=== PATIENT | male | born 1980 | race Caucasian/White ===

== ENCOUNTER 2018-03-27 06:05 | Emergency (ER) | payer SELFPAY ==
--- NOTE | 2018-03-27 06:26 | Emergency Department Record ---
History of Present Illness - General Chief complaint: Cold Stated complaint: COUGH/SORE THROAT Time Seen by Provider: 03/27/18 06:18 Source: Patient Mode of Arrival: Ambulatory Limitations: No limitations - History of Present Illness Initial comments: 37 yo male presents to ED for evaluation of intermittent sore throat symptoms x 1 month. Patient denies fevers, chills, or productive cough symptoms. Patient does report nasal congestion symptoms. Patient also denies health problems at his baseline, denies taking anything for his health problems. MD complaint: Sore throat Onset/Timin -: Month(s) Location: Throat Severity scale (1-10): 5 Quality: Sharp, Other Consistency: Constant Improves with: Cold therapy Worsens with: Other Associated Symptoms: Cough, Pain with swallowing, Sore throat - Related Data Previous Rx's Medication Instructions Recorded Benzonatate [Tessalon] 2 cap PO Q8H PRN #20 cap 03/27/18 Allergies Allergy/AdvReac Type Severity Reaction Status Date / Time tramadol Allergy PT UNSURE Verified 03/27/18 06:12 OF REACTION Travel Screening - Travel/Exposure Within Last 30 Days Have you traveled within the last 30 days?: Yes Location Detail:: front end loader driver - Travel/Exposure Within Last Year Have you traveled outside the [place] in the last year?: No - Additonal Travel Details Have you been exposed to anyone with a communicable illness?: No - Travel Symptoms Symptom Screening: None Review of Systems Constitutional: Denies: Chills, Fever, Malaise, Night sweats Eyes: Denies: Eye discharge, Eye pain ENT: Reports: Congestion, Throat pain. Denies: Dental pain, Ear pain Respiratory: Reports: Cough. Denies: Dyspnea Cardiovascular: Denies: Chest pain, Dyspnea on exertion Endocrine: Denies: Fatigue, Heat or cold intolerance Gastrointestinal: Denies: Abdominal pain, Nausea, Vomiting Genitourinary: Denies: Incontinence, Retention Musculoskeletal: Denies: Arthralgia, Back pain Skin: Denies: Bruising, Change in color Neurological: Denies: Abnormal gait, Confusion, Headache, Seizure Psychiatric: Denies: Anxiety Hematological/Lymphatic: Denies: Anemia, Blood Clots Past Medical History - SOCIAL HISTORY Smoking Status: Current every day smoker Alcohol Use: None Drug Use: None - RESPIRATORY Hx Respiratory Disorders: Yes Hx Asthma: Yes - CARDIOVASCULAR Hx Cardio Disorders: No - NEURO Hx Neuro Disorders: No - GI Hx GI Disorders: No - Hx Genitourinary Disorders: No - ENDOCRINE Hx Endocrine Disorders: No - MUSCULOSKELETAL Hx Musculoskeletal Disorders: No - PSYCH Hx Psych Problems: No - HEMATOLOGY/ONCOLOGY Hx Hematology/Oncology Disorders: No Family Medical History Any Significant Family History?: No Physical Exam - General General Appearance: Alert, Oriented x3, Cooperative, No acute distress Limitations: No limitations - Head Head exam: Atraumatic, Normocephalic, Normal inspection Head exam detail: negative: Abrasion, Contusion, Lema's sign, General tenderness, Hematoma, Laceration - Eye Eye exam: Normal appearance. negative: Conjunctival injection, Periorbital swelling, Periorbital tenderness, Scleral icterus - ENT Ear exam: negative: Auricular hematoma, Auricular trauma Nasal Exam: negative: Active bleeding, Discharge, Dried blood, Foreign body Mouth exam: negative: Drooling, Laceration, Muffled voice, Tongue elevation Throat exam: Tonsillar erythema. negative: Tonsillomegaly, R peritonsillar mass , L peritonsillar mass - Neck Neck exam: Normal inspection. negative: Meningismus, Tenderness - Respiratory Respiratory exam: Normal lung sounds bilaterally. negative: Rales, Respiratory distress, Rhonchi, Stridor - Cardiovascular Cardiovascular Exam: Regular rate, Normal rhythm, Normal heart sounds - GI/Abdominal GI/Abdominal exam: Soft. negative: Rebound, Rigid, Tenderness - Rectal Rectal exam: Deferred - exam: Deferred - Extremities Extremities exam: Normal inspection. negative: Pedal edema, Tenderness - Back Back exam: Denies: CVA tenderness (R), CVA tenderness (L) - Neurological Neurological exam: Alert, Normal gait, Oriented X3 - Psychiatric Psychiatric exam: Normal affect, Normal mood - Skin Skin exam: Normal color. negative: Abrasion Type of lesion: negative: abrasion Course Vital Signs 03/27/18 06:11 Temperature 97.8 F Pulse Rate [ 92 H Pulse Ox Probe] Respiratory 24 Rate Blood Pressure 125/92 [Left Arm] Pulse Ox 98 - Reevaluation(s) Reevaluation #1: 03/27/18 06:26 Rapid strep: Negative Patient was updated on all results, recommended possible Claritan or OTC antihistamine for the patient's pharyngitis symptoms. Will prescribe tessalon for the patient's cough symptom. Patient otherwise is well appearing and stable for discharge at this this time. Disposition Disposition: Discharge Clinical Impression: Pharyngitis Qualifiers: Pharyngitis/tonsillitis etiology: unspecified etiology Qualified Code(s): J02.9 - Acute pharyngitis, unspecified Disposition: Home, Self-Care Condition: (2) Stable Instructions: Pharyngitis (ED) Additional Instructions: Return to ED if your symptoms worsen or if you have any concerns. Mina Aly as directed. Follow-up with your family doctor in 3-5 days as directed. Prescriptions: Benzonatate [Tessalon] 2 cap PO Q8H PRN #20 cap PRN Reason: Cough Forms: Patient Portal Access Time of Disposition: 06:26 Quality - Quality Measures Quality Measures: N/A - Blood Pressure Screening Does Patient Have Any of the Following: No Blood Pressure Classification: Hypertensive Reading Systolic Measurement: 125 Diastolic Measurement: 92 Screening for High Blood Pressure: < First Hypertensive BP, F/U Documented > [ G8950] First Hypertensive Follow-up Interventions: Referral to alternative/primary care provider.
== END 2018-03-27 06:35 | disposition home or self-care (01) ==
LOC: ER 06:05
DX: J02.9 Acute pharyngitis, unspecified (principal); R05 Cough; F17.210 Nicotine dependence, cigarettes, uncomplicated
CPT/HCPCS: 87880; 99282

== ENCOUNTER 2018-03-28 22:26 | Emergency (ER) | payer SELFPAY ==
--- NOTE | 2018-03-28 22:47 | Emergency Department Record ---
History of Present Illness - General Chief complaint: ENT Stated complaint: SORE THROAT/COUGH Time Seen by Provider: 03/28/18 22:32 Source: Patient Mode of Arrival: Ambulatory Limitations: No limitations - History of Present Illness Initial comments: The patient is here due to not feeling well for 2 days. He has had a mild cough , ST, and body aches. The patient was here in the ER about 36 hours ago and had a neg throat swab for Strep but does not feel any better with the OTC meds. He has had no nausea, vomiting, runny nose,neck pain or SOB. MD complaint: Sore throat, Other Onset/Timin -: Days(s) Location: L ear, Throat Severity scale (1-10): 9 Quality: Aching Consistency: Getting worse Improves with: None Worsens with: Eating, Swallowing Associated Symptoms: Cough, Fever, Pain with swallowing, Sore throat - Related Data Previous Rx's Medication Instructions Recorded Benzonatate [Tessalon] 2 cap PO Q8H PRN #20 cap 03/27/18 Azithromycin [Zithromax] 250 mg PO ASDIR #4 tab 03/28/18 Allergies Allergy/AdvReac Type Severity Reaction Status Date / Time tramadol Allergy PT UNSURE Verified 03/27/18 06:12 OF REACTION Travel Screening - Travel/Exposure Within Last 30 Days Have you traveled within the last 30 days?: No - Travel Symptoms Symptom Screening: Fever (GT 100.4) Review of Systems Constitutional: Reports: Malaise. Denies: Chills, Fever Eyes: Denies: Eye discharge ENT: Reports: Congestion, Throat pain Respiratory: Reports: Cough. Denies: Dyspnea Cardiovascular: Denies: Arrhythmia Endocrine: Reports: Fatigue Gastrointestinal: Denies: Abdominal pain Genitourinary: Denies: Dysuria Musculoskeletal: Denies: Arthralgia Neurological: Denies: Abnormal gait Past Medical History - SOCIAL HISTORY Smoking Status: Current every day smoker - RESPIRATORY Hx Respiratory Disorders: Yes Hx Asthma: Yes - CARDIOVASCULAR Hx Cardio Disorders: No - NEURO Hx Neuro Disorders: No - GI Hx GI Disorders: No - Hx Genitourinary Disorders: No - ENDOCRINE Hx Endocrine Disorders: No - MUSCULOSKELETAL Hx Musculoskeletal Disorders: No - PSYCH Hx Psych Problems: No - HEMATOLOGY/ONCOLOGY Hx Hematology/Oncology Disorders: No Family Medical History Any Significant Family History?: Yes Hx Cancer: Mother Hx Diabetes: Grandparents Hx Heart Disease: Grandparents Physical Exam - General General Appearance: Alert, Oriented x3, Cooperative, No acute distress - Head Head exam: Atraumatic, Normocephalic, Normal inspection - Eye Eye exam: Normal appearance, PERRL, EOMI. negative: Conjunctival injection - ENT ENT exam: negative: Normal exam, TM's normal bilaterally (The bilateral TM's are not seen due to wax buildup.) Nasal Exam: Normal inspection. negative: Active bleeding, Discharge Throat exam: Tonsillar erythema. negative: Normal inspection, Tonsillomegaly, Tonsillar exudate, R peritonsillar mass, L peritonsillar mass - Neck Neck exam: Normal inspection, Full ROM. negative: Lymphadenopathy, Meningismus , Tenderness - Respiratory Respiratory exam: Normal lung sounds bilaterally. negative: Respiratory distress - Cardiovascular Cardiovascular Exam: Regular rate, Normal rhythm, Normal heart sounds - GI/Abdominal GI/Abdominal exam: Soft, Normal bowel sounds. negative: Tenderness - Extremities Extremities exam: Normal inspection, Full ROM, Normal capillary refill. negative: Tenderness Course Vital Signs 03/28/18 22:30 Temperature 98.4 F Pulse Rate 113 H Respiratory 16 Rate Blood Pressure 127/92 Pulse Ox 97 - Reevaluation(s) Reevaluation #1: I did explain to the patient that the xray and procalcitonin are equivical so we will treat him for an atypical pneumonia with Zithromax. 03/28/18 23:27 Medical Decision Making - Data Complexity MDM Data: Labs Ordered and/or Reviewed, X-Ray Ordered and/or Reviewed - Lab Data Result diagrams: 03/28/18 22:52 - Radiology Data Radiology results: Report reviewed (CXR: Neg. There is a possible R lower lobe infiltrate but it is questionable.) Disposition Disposition: Discharge Clinical Impression: Bronchitis Disposition: Home, Self-Care Condition: (2) Stable Instructions: Acute Bronchitis (ED) Additional Instructions: PLease use Tylenol or Motrin for pain and ST and continue the Zithromax as directed. Please see your doctor for recheck next week if not better and return to the ER for any worsening symptoms. Prescriptions: Azithromycin [Zithromax] 250 mg PO ASDIR #4 tab Forms: Patient Portal Access Time of Disposition: 23:30 Quality - Quality Measures Quality Measures: N/A - Blood Pressure Screening View Details: Yes Does Patient Have Any of the Following: No Blood Pressure Classification: Hypertensive Reading Systolic Measurement: 127 Diastolic Measurement: 92 Screening for High Blood Pressure: < First Hypertensive BP, F/U Documented > [ G8950] First Hypertensive Follow-up Interventions: Referral to alternative/primary care provider.
[2018-03-28] MEDS ORDERED: ACETAMINOPHEN 325 MG TAB PO ONE (22:56)
[2018-03-28 23:01] LABS: BASO % 0.5 % (0-6); GRAN % 61.9 % (47-80); HEMATOCRIT 47.5 % (42.0-52.0); HEMOGLOBIN 15.9 gm/dl (14.0-18.0); LYMPH % 20.8 % (16-45); MEAN CORPUSCULAR HEMOGLOBIN 30.1 pg (27-33); MEAN CORPUSCULAR HGB CONC 33.5 g/dl (32-36); MEAN PLATELET VOLUME 10.5 fl (7.4-10.4); MONO % 14.8 % (0-9); PLATELET COUNT 236 K/uL (130-400); RED BLOOD COUNT 5.28 M/uL (4.40-5.70); RED CELL DISTRIBUTION WIDTH 14.1 % (11.5-14.5); WHITE BLOOD COUNT W/O DIFF 11.6 K/uL (4.2-12.2)
[2018-03-28 23:10] LABS: INFLUENZA A NEGATIVE (NEGATIVE); INFLUENZA B NEGATIVE (NEGATIVE)
[2018-03-28] MEDS ORDERED: AZITHROMYCIN 500 MG TABLET PO ONE (23:25)
--- NOTE | 2018-03-29 10:16 | RADIOLOGY REPORT ---
EXAM: CHEST, TWO VIEWS HISTORY: COUGH, SORE THROAT FOR A COUPLE DAYS. TECHNIQUE: PA and lateral views of the chest were obtained. Comparison: None. FINDINGS: The heart size is normal. No definite acute infiltrate is seen. No pleural effusion or pneumothorax evident. Mild thoracic curve to the right. IMPRESSION: MILD THORACIC CURVE TO THE RIGHT. NO DEFINITE ACUTE INFILTRATE SEEN. JOB NUMBER: [id number] MTDD
== END 2018-03-28 23:38 | disposition home or self-care (01) ==
LOC: ER 22:26
DX: J20.9 Acute bronchitis, unspecified (principal); F17.210 Nicotine dependence, cigarettes, uncomplicated
CPT/HCPCS: 71046; 84145; 85025; 87400; 99283; 99284